=== PATIENT | female | born 1950 | race Two or more races ===

== ENCOUNTER 2018-01-04 22:40 | Emergency (ER) | payer SELFPAY ==
[2018-01-04] MEDS: IV NORMAL SALINE 1000ML BAG 1,000 ML IV (22:57)
[2018-01-04 23:20] LABS: ADD MAN DIFF? NO
[2018-01-04 23:22] LABS: BASO % 0 % (0-3); EOS # 0.5 x10^3/uL (0.0-0.7); EOS % 4 % (0-3); HEMATOCRIT 32.4 % (36.0-47.0); HEMOGLOBIN 11.6 g/dL (12.0-15.5); LYMPH # 4.3 x10^3/uL (1.0-4.8); LYMPH % 39 % (24-48); MEAN CORPUSCULAR HEMOGLOBIN 33 pg (25-35); MEAN CORPUSCULAR HGB CONC 36 g/dL (31-37); MEAN CORPUSCULAR VOLUME 92 fL (79-100); MONO % 9 % (0-9); NEUT # 5.1 x10^3uL (1.8-7.7); NEUT % 47 % (31-73); PLATELET COUNT 267 x10^3/uL (140-400); RED BLOOD COUNT 3.52 x10^6/uL (3.50-5.40); RED CELL DISTRIBUTION WIDTH 12.9 % (11.5-14.5); WHITE BLOOD COUNT 10.9 x10^3/uL (4.0-11.0)
[2018-01-04 23:39] LABS: LACTIC ACID 1.9 mmol/L (0.4-2.0)
[2018-01-04 23:42] LABS: INFLUENZA A PATIENT NEGATIVE (NEGATIVE); INFLUENZA B PATIENT NEGATIVE (NEGATIVE); OBC FLU VALID
[2018-01-05 00:30] LABS: ANION GAP 9 (6-14); BLOOD UREA NITROGEN 25 mg/dL (7-20); BUN/CREATININE RATIO 19 (6-20); CARBON DIOXIDE 27 mmol/L (21-32); CHLORIDE 95 mmol/L (98-107); CREATININE 1.3 mg/dL (0.6-1.0); GFR 40.9; GLUCOSE 366 mg/dL (70-99); POTASSIUM 4.1 mmol/L (3.5-5.1); SODIUM 131 mmol/L (136-145)
[2018-01-05 00:36] LABS: ALBUMIN 3.1 g/dL (3.4-5.0); ALBUMIN/GLOBULIN RATIO 0.7 (1.0-1.7); ALK PHOS 122 U/L (46-116); ALT (SGPT) 22 U/L (14-59); AST (SGOT) 14 U/L (15-37); TOTAL BILIRUBIN 0.5 mg/dL (0.2-1.0); TOTAL PROTEIN 7.6 g/dL (6.4-8.2)
[2018-01-05 00:38] LABS: TROPONINI < 0.017 ng/mL (0.000-0.055)
[2018-01-05 00:42] LABS: NT-PRO BNP 139 pg/mL (0-124)
== END 2018-01-05 01:15 | disposition home or self-care (01) ==
LOC: ER 01-05 01:15
DX: R05 Cough (principal); E11.9 Type 2 diabetes mellitus without complications; I10 Essential (primary) hypertension; R50.9 Fever, unspecified; R09.81 Nasal congestion
CPT/HCPCS: 36415; 71046; 80053; 83605; 83880; 84484; 85025; 87804; 87804-59; 93005; 99285-25; J7030